=== PATIENT | female | born 1975 | race African-American/Black ===

== ENCOUNTER 2023-10-20 04:45 | Emergency (ER) | payer MEDICARE, MEDICAID ==
[~2023-10-20] VITALS: Ht 170.2 cm; Wt 73.0 kg
[2023-10-20 05:53] LABS: BASOPHILS % 0.7 % (0.0-2.0); EOSINOPHILS % 1.3 % (0.0-5.0); HEMATOCRIT. 38.8 % (36.0-48.0); HEMOGLOBIN. 12.6 g/dL (12.0-16.0); LYMPHOCYTES % 10.1 % (20.0-50.0); MEAN CORPUSCULAR HEMOGLOBIN 30.2 pg (28.0-32.0); MEAN CORPUSCULAR HGB CONC 32.5 g/dL (31.0-37.0); MEAN CORPUSCULAR VOLUME 92.8 fL (81.0-99.0); MONOCYTES % 6.8 % (2.0-8.0); NEUTROPHILS % 81.1 % (40.0-76.0); PLATELET 211 x1000/uL (130-400); RED BLOOD CELL COUNT 4.18 mill/uL (4.2-5.4); RED CELL DISTRIBUTION WIDTH 19.8 % (11.6-14.6); WHITE BLOOD COUNT 6.9 x1000/uL (4.5-11.0)
[2023-10-20 06:05] LABS: PARTIAL THROMBOPLASTIN TIME 31.2 sec (23.4-31.0); PROTHROMBIN TIME 10.8 sec (9.6-11.0)
[2023-10-20 06:16] LABS: ALANINE AMINOTRANSFERASE < 7 IU/L (10-49); ALBUMIN 3.6 g/dL (3.2-4.8); ASPARTATE AMINOTRANSFERASE 12 IU/L (<34); BILIRUBIN TOTAL 0.3 mg/dL (0.1-1.0); CALCIUM 7.6 mg/dL (8.7-10.4); CARBON DIOXIDE 25 mEq/L (21-32); CHLORIDE 107 mEq/L (98-107); GLUCOSE 83 mg/dL (70-105); POTASSIUM 5.7 mEq/L (3.5-5.1); PROTEIN TOTAL 5.7 g/dL (6.0-8.3); SODIUM 141 mEq/L (136-145); TROPONIN I HIGH SENSITIVITY 22 ng/L (3.0-34); UREA NITROGEN BLOOD 55 mg/dL (9-23)
[2023-10-20 09:17] LABS: TROPONIN I HIGH SENSITIVITY 34 ng/L (3.0-34)
[2023-10-20] MEDS: FUROSEMIDE 40MG/4ML VIAL IVP NR (09:45)
[2023-10-20] MEDS ORDERED: ONDANSETRON HCL 4MG/2ML INJ IV PRN (11:15)
[2023-10-20] MEDS ORDERED: ACETAMINOPHEN 325MG TABLET PO PRN ×2 (11:15)
[2023-10-20] MEDS ORDERED: IPRATROPIUM/ALBUTEROL 0.5-3(2.5)MG/3ML NEB HHN PRN (11:15)
[2023-10-20] MEDS ORDERED: BUME1TAB8 PO (11:25)
[2023-10-20] MEDS ORDERED: ASPI-1406 PO (11:25)
[2023-10-20] MEDS ORDERED: SEVE800T25 (11:25)
[2023-10-20] MEDS ORDERED: LOSA25TA26 PO (11:25)
[2023-10-20] MEDS ORDERED: AMLO10TA80 PO (11:25)
[2023-10-20] MEDS ORDERED: CARV3.1242 PO (11:25)
[2023-10-20] MEDS: AMLODIPINE 10MG TABLET PO SCH (11:30)
[2023-10-20 12:02] LABS: T4 FREE 1.06 ng/dL (0.89-1.76); THYROID STIMULATING HORMONE 1.23 uIU/mL (0.55-4.78)
[2023-10-20] MEDS: SODIUM POLYSTYRENE SULFONATE 15 G/60 ML BOT PO SCH (12:29)
[2023-10-20] MEDS: ASPIRIN 81MG EC TABLET PO SCH (12:30)
[2023-10-20] MEDS: DEXTROSE 50% WATER 50ML SYRINGE IV NR (12:30)
[2023-10-20] MEDS: CALCIUM CHLORIDE 1GM/10ML SYR IV NR (12:30)
[2023-10-20] MEDS: INSULIN REGULAR (HUMULIN R) 300UNITS/3ML VIAL IV NR (12:30)
[2023-10-20] MEDS: SODIUM BICARBONATE 8.4% 1 MEQ/ML 50ML SYR IV NR (12:31)
[2023-10-20] MEDS: BLOOD SUGAR DIAGNOSTIC STRIP TEST SCH (12:31)
[2023-10-20] MEDS: CARVEDILOL 3.125 MG TABLET PO SCH (12:49)
[2023-10-20 13:03] VITALS: PULSE 88; RESP 20; O2SAT 93
[2023-10-20] MEDS: ALBUTEROL (0.083%) 2.5MG/3ML NEB HHN SCH (13:03)
[2023-10-20] MEDS ORDERED: CEFEPIME 2,000 MG in DEXT 5% WATER 100 ML IV SCH (14:15)
[2023-10-20] MEDS: AZITHROMYCIN 500MG/250ML 250 ML IV SCH (15:08)
[2023-10-20 16:09] LABS: HEPATITIS A AB IGM NEGATIVE (Negative); HEPATITIS B CORE AB IGM NEGATIVE (Negative); HEPATITIS B SURFACE ANTIGEN NEGATIVE (Negative); HEPATITIS C AB NON REACTIVE (Neg) (Negative)
[2023-10-20] MEDS: HYDRALAZINE 20MG/ML VIAL IV PRN (16:33)
[2023-10-20] MEDS: CEFEPIME 1,000 MG in DEXTROSE 5% WATER 50 ML IV SCH (16:33)
[2023-10-20] MEDS: FUROSEMIDE 40MG/4ML VIAL IVP SCH (17:48)
[2023-10-20] MEDS: DEXTROSE 50% WATER 50ML SYRINGE IV PRN (18:39)
[2023-10-21 00:36] LABS: CLARITY URINE CLEAR (CLEAR); COLOR URINE YELLOW (YELLOW); GLUCOSE URINE NEGATIVE (NEGATIVE); KETONES URINE NEGATIVE (NEGATIVE); LEUKOCYTE ESTERASE URINE NEGATIVE (NEGATIVE); NITRITE URINE NEGATIVE (NEGATIVE); OCCULT BLOOD URINE 1+ (NEGATIVE); PH URINE 8.5 (4.5-8.0); PROTEIN URINE 3+ (NEGATIVE); SPECIFIC GRAVITY URINE 1.008 (1.005-1.030); UROBILINOGEN URINE 0.2 E.U./dL (0.2-1.0)
[2023-10-21 00:44] LABS: *AMPHETAMINES SCREEN URINE NEGATIVE (NEGATIVE); *BARBITURATES SCREEN URINE NEGATIVE (NEGATIVE); *BENZODIAZEPINES SCREEN URINE NEGATIVE (NEGATIVE); *COCAINE SCREEN URINE NEGATIVE (NEGATIVE); CANNABINOID URINE SCREEN NEGATIVE (NEGATIVE); ECSTASY MDMA SCREEN URINE NEGATIVE (NEGATIVE); METHADONE URINE SCREEN Neg (NEGATIVE); OPIATES URINE SCREEN NEGATIVE (NEGATIVE); PHENCYCLIDINE URINE SCREEN NEGATIVE (NEGATIVE)
[2023-10-21 01:53] LABS: SQUAMOUS EPITHELIAL CELL URINE FEW /lpf (RARE/1+)
[2023-10-21 01:54] LABS: BACTERIA URINE NONE SEEN; RBC URINE 0-2 /hpf (0-2); WBC URINE 0-2 /hpf (0-2)
[2023-10-21 04:15] VITALS: BP 169/110; PULSE 79; RESP 20; TEMP 98.6
== END 2023-10-21 04:20 | disposition left against medical advice (07) ==
LOC: ER 04:45 → EDBEDREQ 08:22 → EDBEDREQSVC 09:44 → EDBEDREQ 09:44 → EDBEDREQTM 09:44 → ER 10-21 04:20
DX: I11.0 Hypertensive heart disease with heart failure (principal); I50.9 Heart failure, unspecified; Z85.9 Personal history of malignant neoplasm, unspecified; Z20.822 Contact with and (suspected) exposure to COVID-19
CPT/HCPCS: 99285; 96375; 96365; 71045; 96367; 87426; 80053; 82962; 83036; 83880; 84439; 83605; 84443; 85025; 85610; 85730; 87340; 87040; 84484; 87804 ×2; 86709; 84145; 82803; 93005; 94644; 96376; 80305; 81003; 36415; 86705; J0456; J3490 ×2; J0692; J1940; J0360; J7060